=== PATIENT | female | born 1960 | race Caucasian/White ===

== ENCOUNTER → 2025-04-20 17:09 | Outpatient (REF) | payer OTHER, SELFPAY | LOC: RAD 17:09 | PROVIDERS: ATTENDING PHYSICIAN Internal Medicine | DX: R10.9 Unspecified abdominal pain (principal) | CPT/HCPCS: 72072 ==

== ENCOUNTER 2025-05-23 19:42 | Emergency (ER) | payer OTHER, SELFPAY ==
[2025-05-23 19:46] VITALS: BP 158/95
[2025-05-23 20:13] VITALS: BP 153/74
[2025-05-23 20:20] VITALS: BP 145/70
[2025-05-23 21:00] VITALS: BP 130/62
--- NOTE | 2025-05-23 21:06 | ED.GENMED ---
History of Present Illness
General
Chief Complaint: Heart Rate Problem
Source: patient and spouse
Exam Limitations: none
Time Seen by Provider: 05/23/25 20:09
Nursing documentation reviewed up to this point in time: agreed with
History of Present Illness
History of Present Illness:
65-year-old female limited past medical history a few days of palpitations, was at a store felt palpitations and dizzy like she may pass out this occurred just prior to arrival had some diarrhea recently, she has had that after her gallbladder was
removed also after some food indiscretion, no chest pain or shortness of breath, she has had mild headache, no fevers no abdominal pain has had palpitations previously but never this severe, drink socially not to excess non-smoker, has never seen a
physician for this issue
Past History
Past History
ED Past Medical History: Negative Arrthythmia
ED Past Surgical History: Appendectomy and Cholecystectomy
Social History
Tobacco: Non-smoker
Alcohol: Occasional
Drug: None
Personal:
Living: with family
Review of Systems
Review of Systems
All Other Systems: Not applicable
Constitutional: Denies fever or fatigue
Respiratory: Denies cough or trouble breathing
Cardiac: Reports palpitations; Denies chest pain, diaphoresis or syncope
ABD/GI: Reports diarrhea; Denies abdominal pain, nausea, constipated, bloody stools, black stools or anorexia
Musculoskeletal: Reports no symptoms
Skin: Reports no symptoms
Neurological: Reports dizzy and headache
Endocrine: Reports no symptoms
Phy Exam
Physical Exam
Physical Exam:
Physical Exam
General: no apparent distress, not acutely ill
Neck: No jaundice
Heart: s1/s2 regular rate and rhythm, no murmur. equal radial pulses.
Lungs: no acute respiratory distress. clear bilaterally
Abdomen: Nontender
Neuro: alert and oriented. no focal neurological deficits
Skin: no rash
Psychiatric: well kept. interactive and cooperative
Extremities: no edema.
Course
Orders/Labs/Results
Orders:
Orders
05/23/25 19:49
EKG [Electrocardiogram (*1)] Urgent
Reason for Study: Palpitations
EKG- Treatment ONCE
05/23/25 20:44
Cardiac Monitoring- Treatment ONCE
05/23/25 20:51
Complete Blood Count/With Diff Urgent
Comprehensive Metabolic Panel Urgent
Magnesium Urgent
TSH Urgent
Troponin I Urgent
Abnormal Lab Results
05/23/25
20:51
WBC 11.0 H 10^3/uL
(4.8-10.8)
MCH 26.7 L pg
(27.0-31.0)
MCHC 32.9 L g/dL
(33.0-37.0)
Plt Count 115 L 10^3/uL
(130-400)
MPV 12.1 H fL
(7.4-10.4)
Absolute Lymphs (auto) 3.8 H 10^3/uL
(1.2-3.4)
Absolute Monos (auto) 0.8 H 10^3/uL
(0.1-0.6)
05/23/25 20:51
05/23/25 20:51
Vital Signs
Initial and Last Documented VS:
Initial Vital Signs
Temp Pulse Resp BP Pulse Ox
98.2 F 89 16 158/95 96
05/23/25 19:46 05/23/25 19:46 05/23/25 19:46 05/23/25 19:46 05/23/25 19:46
Last Documented Vital Signs
Temp Pulse Resp BP Pulse Ox
98.2 F 72 17 126/65 96
05/23/25 19:46 05/23/25 23:15 05/23/25 23:15 05/23/25 23:00 05/23/25 21:07
MDM/Problems Addressed
Differential Diagnosis Includes:
PVCs A-fib symptomatic thyroid electrolyte abnormality other arrhythmia
MDM/Problems Addressed:
Palpitations
*Pulse Oximetry
SaO2: 96
Oxygen Mode of Delivery: Room air
Patient hypoxic: no
*EKG
Interpreted by ED Provider?: Yes
Interpretation: normal
Comparison EKG: no comparison EKG present
Heart Rate: 78
Rate: normal
Rhythm: sinus
Ischemia: no ischemia
*[employer] Sales[employer] Interpretation
Rate: normal
Interpretation: normal
Heart Rate: 78
Rhythm: sinus
*Critical Care Note
Total Time (30-74mins, 75-104mins- exclusive of procedures): Not Applicable
Update Note
Update Note:
11 PM update patient remains in sinus rhythm no significant arrhythmias seen, has seen Dr. Lal previously
ED Attending Note
-
Portions of this chart may have been created with voice recognition software.� Occasional wrong word or��sound alike� substitutions may have occurred due to the inherent limitations of voice recognition software.
Discharge Plan
Departure
Patient Disposition: Home (Routine Discharge)
Date of Disposition: 05/23/25
Time of Disposition: 23:00
Patient with high blood pressure during this ER visit?: No
Condition: Good
Discharge Problem:
Heart palpitations
Instructions: Palpitations (DC)
Referrals:
Pablo Lal MD [Active, Cardiology] - Next open appointment
Francine Stevens DO [Family Provider, Family Practice]
Activity Restrictions/Additional Instructions:
Rest drink plenty of fluids limit your caffeine and alcohol intake
Follow-up with Dr. Lal or his associates from cardiology
Return to the ER for worsening symptoms
Interventions
Interventions:
*Risk Screen - Suicide Last Done: 05/23/25 19:46
*General Assessment Last Done: 05/23/25 21:05
*Neglect/Abuse Screening Last Done: 05/23/25 19:46
*ED- Fall Risk Assessment Last Done: 05/23/25 21:05
*ED COVID-19 Vaccine History Last Done: 05/23/25 21:05
*ED Influenza Vaccine History Last Done: 05/23/25 21:05
*Nursing Disposition Last Done: 05/23/25 23:22
ED- Cardiac Assessment Last Done: 05/23/25 21:05
ED- Pulmonary Assessment Last Done: 05/23/25 21:05
Discharge Date and Time
Print Language: GABONESE
[2025-05-23 21:11] LABS: Hematocrit 41.3 % (37.0-47.0); Hemoglobin 13.6 g/dL (12.0-16.0); Mean Corp Hgb Conc. 32.9 g/dL (33.0-37.0); Mean Corpuscular Volume 81.1 fL (81.0-99.0); Nucleated Red Blood Cells % 0 %; Platelet Count 115 10^3/uL (130-400); Red Cell Dist. Width 14.4 % (11.5-14.5)
[2025-05-23 21:13] LABS: ALT (SGPT) 17 U/L (0-35); AST (SGOT) 18 U/L (14-36); Albumin 4.1 g/dl (3.5-5.0); Alkaline Phosphatase 74 U/L (38-126); Blood Urea Nitrogen 12 mg/dl (7-17); Calcium 9.1 mg/dl (8.4-10.2); Carbon Dioxide 30 mmol/L (22-30); Chloride 105 mmol/L (98-107); Glucose 99 mg/dl (70-99); Magnesium 1.9 mg/dl (1.6-2.3); Potassium 4.0 mmol/L (3.5-5.1); Sodium 138 mmol/L (135-145); Total Protein 7.5 g/dl (6.3-8.2); eGFR > 60.00
[2025-05-23 21:43] LABS: TSH 3.10 uIU/ml (0.47-4.68)
[2025-05-23 21:51] LABS: Troponin I < 0.012 ng/ml
[2025-05-23 22:00] VITALS: BP 120/62
[2025-05-23 23:00] VITALS: BP 126/65
== END 2025-05-23 23:39 | disposition home or self-care (01) ==
LOC: EMR 19:42
PROVIDERS: EMERGENCY PHYSICIAN Emergency Medicine; FAMILY PHYSICIAN Internal Medicine
DX: R00.2 Palpitations (principal); Z90.49 Acquired absence of other specified parts of digestive tract
CPT/HCPCS: 99284; 80053; 83735; 84443; 84484; 85025; 93005